=== PATIENT | female | born 1980 | race Caucasian/White ===

== ENCOUNTER 2020-04-03 14:41 | Emergency (ER) | payer MEDICAID ==
[~2020-04-03] VITALS: Ht 175.3 cm; Wt 69.3 kg
[2020-04-03 14:45] VITALS: BP 147/100
[2020-04-03] MEDS ORDERED: proparacaine 0.5% ophthalmic drops 15ml EACHEYE ONE (15:20)
[2020-04-03] MEDS ORDERED: TOBDEXOO OP (16:00)
== END 2020-04-03 16:10 | disposition home or self-care (01) ==
LOC: ER 14:41
DX: H15.001 Unspecified scleritis, right eye (principal); H57.11 Ocular pain, right eye; F17.210 Nicotine dependence, cigarettes, uncomplicated; Z79.2 Long term (current) use of antibiotics
CPT/HCPCS: 99283